=== PATIENT | male | born 1980 | race Two or more races ===

== ENCOUNTER 2023-01-03 20:17 | Emergency (ER) | payer OTHER ==
[~2023-01-03] VITALS: Ht 172.7 cm; Wt 81.6 kg
[2023-01-03] MEDS ORDERED: IBUP-1955 PO (22:27)
[2023-01-03] MEDS ORDERED: TDAP [DIPH/PERTUSSIS/TET] 0.5 ML VIAL IM ONE (22:30)
[2023-01-03] MEDS ORDERED: IBUPROFEN 600 MG TABLET PO ONE (22:30)
[2023-01-03] MEDS ORDERED: IBUPROFEN 600 MG TABLET ONE (22:34)
[2023-01-03 22:46] VITALS: BP 121/78; TEMP 98.1; O2SAT 99
== END 2023-01-03 22:47 | disposition home or self-care (01) ==
LOC: ER 20:30
DX: S02.2XXA Fracture of nasal bones, initial encounter for closed fracture (principal); V89.2XXA Person injured in unspecified motor-vehicle accident, traffic, initial encounter; Y93.89 Activity, other specified; Y92.89 Other specified places as the place of occurrence of the external cause; Y99.8 Other external cause status
CPT/HCPCS: 70450-TC; 70486-TC; 71045-TC; 72125-TC; 90715

== ENCOUNTER 2024-03-09 08:24 | Emergency (ER) | payer OTHER ==
[~2024-03-09] VITALS: Ht 170.2 cm; Wt 81.6 kg
[~2024-03-09 08:24] MED LIST: IBUP-1955 PO
[2024-03-09 08:40] VITALS: BP 127/77; TEMP 98.4; O2SAT 98
== END 2024-03-09 08:40 ==
LOC: ER 08:33
DX: Z02.89 Encounter for other administrative examinations (principal); V49.69XA Unspecified car occupant injured in collision with other motor vehicles in traffic accident, initial encounter; Y93.89 Activity, other specified; Y92.488 Other paved roadways as the place of occurrence of the external cause; Y99.8 Other external cause status